=== PATIENT | male | born 1950 | race Caucasian/White ===

== ENCOUNTER 2019-06-18 16:50 | Emergency (ER) | payer OTHER ==
[2019-06-18 17:00] VITALS: BP 121/82; PULSE 79; TEMP 98.5; BMI 24.3
[2019-06-18] MEDS ORDERED: IBUPROFEN 600 MG TABLET (FP) PO ONE (17:02)
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
[2019-06-18] MEDS ORDERED: DIPHTH,PERTUSS(ACELL),TET 0.5 ML DISP.SYRIN IM ONE ×2 (18:33→18:49)
== END 2019-06-18 19:05 | disposition home or self-care (01) ==
LOC: JER 16:50
PROC: 3E0234Z Introduction of Serum, Toxoid and Vaccine into Muscle, Percutaneous Approach (ICD-10-PCS; principal; 2019-06-18)
DX: S22.31XA Fracture of one rib, right side, initial encounter for closed fracture (principal); V18.0XXA Pedal cycle driver injured in noncollision transport accident in nontraffic accident, initial encounter; Y92.410 Unspecified street and highway as the place of occurrence of the external cause; Y93.55 Activity, bike riding; Y99.8 Other external cause status; I10 Essential (primary) hypertension; E78.5 Hyperlipidemia, unspecified; F32.9 Major depressive disorder, single episode, unspecified; Z79.82 Long term (current) use of aspirin
CPT/HCPCS: 71046-TC-FY; 71101-TC-RT-FY; 90715; 99281-25

== ENCOUNTER 2025-02-11 14:31 | Emergency (ER) | payer OTHER, MEDICARE ==
[2025-02-11] MEDS ORDERED: ACETAMINOPHEN 325 MG TABLET (FP) ONE (14:49)
[2025-02-11 14:59] VITALS: BP 120/64; PULSE 60; RESP 16; TEMP 98.1; BMI 23.0
[2025-02-11] MEDS: ACETAMINOPHEN 325 MG TABLET (FP) PO ONE (15:05)
== END 2025-02-11 16:31 | disposition home or self-care (01) ==
LOC: FER 14:31
DX: S22.41XA Multiple fractures of ribs, right side, initial encounter for closed fracture (principal); V18.0XXA Pedal cycle driver injured in noncollision transport accident in nontraffic accident, initial encounter
CPT/HCPCS: 71101-TC-RT-FY; 71120-TC-FY; 99283-25